=== PATIENT | female | born 1965 | race Native Hawaiian/Other Pacific Islander ===

== ENCOUNTER 2016-08-28 23:11 | Emergency (ER) | payer OTHER ==
[~2016-08-28] VITALS: Ht 152.4 cm; Wt 47.6 kg
[2016-08-28] MEDS ORDERED: SERT50TA PO (23:28)
[2016-08-28] MEDS ORDERED: LORAZEPAM 2 MG/1 ML VIAL ONE (23:29)
[2016-08-28] MEDS ORDERED: LORAZEPAM 2 MG/1 ML VIAL IM ONE (23:30)
[2016-08-28 23:50] LABS: CARBON DIOXIDE 24 mmol/L (21-32); CHLORIDE 105 mmol/L (98-107); GLUCOSE 99 mg/dL (74-106); POTASSIUM 3.3 mmol/L (3.5-5.1); UREA NITROGEN, BLOOD 9 mg/dL (7-18)
[2016-08-28 23:54] LABS: ETHANOL 197 MG/DL (0-0)
[2016-08-28 23:57] LABS: BASOPHILS # (AUTO) 0.1 K/uL (0.0-8.0); BASOPHILS % (AUTO) 1.2 % (0.0-2.0); EOSINOPHILS # (AUTO) 0.2 K/uL (0.0-0.7); EOSINOPHILS % (AUTO) 2.2 % (0.0-7.0); HEMATOCRIT 36.1 % (37-47); HEMOGLOBIN 11.3 G/DL (12.0-16.0); LYMPHOCYTES # (AUTO) 3.3 K/UL (0.8-4.8); LYMPHOCYTES % (AUTO) 40.8 % (20.5-51.5); MEAN CORPUSCULAR HEMOGLOBIN 23.4 UUG (27.0-31.0); MEAN CORPUSCULAR HGB CONC 31 g/dL (32.0-37.0); MEAN CORPUSCULAR VOLUME 75.3 FL (81.0-99.0); MONOCYTES # (AUTO) 0.5 K/UL (0.1-1.30); MONOCYTES % (AUTO) 6.7 % (0.0-11.0); NEUTROPHILS # (AUTO) 3.9 K/UL (1.8-8.9); NEUTROPHILS % (AUTO) 49.1 % (38.5-71.5); PLATELET COUNT (AUTO) 424 K/UL (150-450)
[2016-08-29 00:03] LABS: ACETAMINOPHEN < 2.0 ug/mL (10-30); ALANINE AMINOTRANSFERASE 18 U/L (14-59); ALKALINE PHOSPHATASE 100 U/L (50-136); ASPARTATE AMINOTRANSFERASE 21 U/L (15-37); BILIRUBIN,DIRECT < 0.1 mg/dL (0.0-0.2); BILIRUBIN,TOTAL 0.1 mg/dL (0.2-1.0); TOTAL PROTEIN, SERUM 7.6 g/dL (6.4-8.2)
--- NOTE | 2016-08-29 00:41 | NUR ---
John Duncan LCSW, contacted for PET evaluation, ETA 60 min.
--- NOTE | 2016-08-29 00:50 | NUR ---
Patient provided urine sample, specimen to laboratory.
--- NOTE | 2016-08-29 00:53 | NUR ---
Family members arrived, Son at bedside. ERMD notified.
--- NOTE | 2016-08-29 00:54 | NUR ---
Patient was reported by paramedics to be holding a pill bottle when they arrived on scene. Her son was able to provide the bottle that she was holding which was Ferrous Sulfate. The bottle indicated that the prescription was filled on 08/25/16 and was 60 tablets, 53 tablets were found in the bottle indicating that she did not overdose.
[2016-08-29 00:57] LABS: *BILIRUBIN,URIN NEGATIVE (NEGATIVE); *BLOOD, URINE 2+ (NEGATIVE); *CLARITY,URINE CLEAR (CLEAR); *COLOR,URINE YELLOW (YELLOW); *KETONES,URINE NEGATIVE (NEGATIVE); *PROTEIN,URINE NEGATIVE (NEGATIVE); *UROBILINOGEN,URINE 0.2 E.U./dl (NORMAL); NITRITE, URINE NEGATIVE (NEGATIVE); UGLUCOSE NEGATIVE (NEGATIVE)
[2016-08-29 01:02] LABS: *AMPHETAMINE, URINE NEGATIVE (NEGATIVE); *BARBITURATE, URINE NEGATIVE (NEGATIVE); *CANNABINOID, URINE NEGATIVE (NEGATIVE); *COCCAINE, URINE NEGATIVE (NEGATIVE); *OPIATE, URINE NEGATIVE (NEGATIVE); *PHENCYCLIDINE SCREEN,URINE NEGATIVE (NEGATIVE)
[2016-08-29 01:05] LABS: LEUKOCYTE ESTERASE ,URINE TRACE (NEGATIVE)
[2016-08-29 01:06] LABS: BACTERIA,URINE FEW /HPF (NONE SEEN); SQUAMOUS EPITHELIAL CELL,UR FEW /HPF (NONE SEEN); WBC,URINE 0-3 /HPF (0-3)
[2016-08-29] MEDS ORDERED: ESCI10TA PO (01:28)
[2016-08-29] MEDS ORDERED: IBUP-1955 PO (01:28)
[2016-08-29] MEDS ORDERED: AMOX500C2 PO (01:28)
[2016-08-29] MEDS ORDERED: FERR325T28 PO (01:28)
[2016-08-29] MEDS ORDERED: CARI350T PO (01:28)
--- NOTE | 2016-08-29 01:45 | NUR ---
Art Capilla at bedside for evaluation.
== END 2016-08-29 02:42 | disposition home or self-care (01) ==
LOC: ER 23:15
DX: F10.129 Alcohol abuse with intoxication, unspecified (principal); F32.9 Major depressive disorder, single episode, unspecified; F41.9 Anxiety disorder, unspecified
CPT/HCPCS: 36415; 71010; 80307; 84703; 85025; 93005; A4663; G0480; G0480-TC; J2060